=== PATIENT | female | born 1965 | race Caucasian/White ===

== ENCOUNTER 2017-12-25 23:32 | Emergency (ER) | payer OTHER ==
[~2017-12-25] VITALS: Ht 160 cm; Wt 72.0 kg
[2017-12-25 23:37] VITALS: BP 156/94
[2017-12-25] MEDS ORDERED: LIDOCAINE 1%, 20ML ONE (23:43)
[2017-12-26] MEDS ORDERED: LIDOCAINE 1%, 20ML SQ ONE (00:30)
== END 2017-12-26 03:32 | disposition home or self-care (01) ==
LOC: ED 12-26 00:31
DX: S01.511A Laceration without foreign body of lip, initial encounter (principal); S01.412A Laceration without foreign body of left cheek and temporomandibular area, initial encounter; S01.112A Laceration without foreign body of left eyelid and periocular area, initial encounter; W01.0XXA Fall on same level from slipping, tripping and stumbling without subsequent striking against object, initial encounter; Y93.89 Activity, other specified; Y92.89 Other specified places as the place of occurrence of the external cause; Y99.8 Other external cause status; S00.33XA Contusion of nose, initial encounter
CPT/HCPCS: 12013; 12052; 40650; 70486